=== PATIENT | female | born 1945 | race Caucasian/White ===

== ENCOUNTER 2021-07-28 21:14 | Emergency (ER) | payer MEDICARE, OTHER ==
[2021-07-28 22:20] LABS: HEMOGLOBIN 13.6 gm/dl (12.3-15.3); RED BLOOD COUNT 4.62 M/UL (4.00-5.10); WHITE BLOOD COUNT 7.5 K/UL (4.5-11.0)
[2021-07-28] MEDS ORDERED: PERCOCET 5/325 T1 EA PO ×3 (23:38→23:41)
== END 2021-07-28 22:50 | disposition home or self-care (01) ==
LOC: ER1 21:14
PROVIDERS: Family Medicine
DX: M54.50 Low back pain, unspecified (principal); E11.9 Type 2 diabetes mellitus without complications; I10 Essential (primary) hypertension; F17.200 Nicotine dependence, unspecified, uncomplicated; Z95.5 Presence of coronary angioplasty implant and graft
CPT/HCPCS: 71045; 72131; 80053; 81001; 85025; 99284

== ENCOUNTER 2021-09-12 16:53 | Emergency (ER) | payer MEDICARE ==
[~2021-09-12 16:53] MED LIST: PERCOCET 5/325 T1 EA PO
[2021-09-12 17:44] LABS: HEMOGLOBIN 13.6 gm/dl (12.3-15.3); RED BLOOD COUNT 4.57 M/UL (4.00-5.10); WHITE BLOOD COUNT 9.5 K/UL (4.5-11.0)
[2021-09-12] MEDS ORDERED: OMNICEF 300 MG300 MG PO (19:34)
[2021-09-12] MEDS ORDERED: MEDROL DOSEPAK 24 MG PO (19:34)
[2021-09-12] MEDS ORDERED: Voltaren Gel 1 % TOP (19:34)
== END 2021-09-12 20:00 | disposition home or self-care (01) ==
LOC: ER1 16:53
PROVIDERS: Physician Assistant Medical
DX: M54.41 Lumbago with sciatica, right side (principal); G89.29 Other chronic pain
CPT/HCPCS: 80053; 81001; 85025; 87077; 87086; 87186; 96372; 99283; J2930